=== PATIENT | male | born 1960 | race African-American/Black ===

== ENCOUNTER 2023-03-10 15:22 | Emergency (ER) | payer MEDICAID, SELFPAY ==
--- NOTE | 2023-03-10 15:55 | ED.DIZZY ---
HPI - Dizziness General Chief Complaint: General Medical <ANTOINE Bender - Last Filed: 03/10/23 15:59> Stated Complaint: high bp <ANTOINE Bender - Last Filed: 03/10/23 15:59> Time Seen by Provider: 03/10/23 22:10 <ANTOINE Bender - Last Filed: 03/10/23 15:59> Source: patient <Zee Drew MD - Last Filed: 03/11/23 00:14> Mode of arrival: ambulatory <Zee Drew MD - Last Filed: 03/11/23 00:14> Limitations: no limitations <Zee Drew MD - Last Filed: 03/11/23 00:14> History of Present Illness HPI Narrative: Patient comes to the emergency room complaining of high blood pressure. Patient states that sometimes he feels a lot of pressure in the back of the head, intermittent blurred vision. Patient states that he usually gets the symptoms when he knows that his blood pressure is high. Patient has been out of his medications for over 6 weeks. Patient moved from [place] to [place] and his health insurance has not kicked in. Patient moved before he could refill his medications in [place]. At this time, patient is asymptomatic, no chest pain or shortness of breath. Patient brought with him his empty bottle of medications, patient takes lisinopril 20 mg, hydrochlorothiazide 25 mg, amlodipine 5 mg <Zee Drew MD - Last Filed: 03/11/23 00:14> Related Data Home Medications: Previous Rx's Medication Instructions Recorded amlodipine 10 mg tablet 10 mg PO DAILY #90 tabs 03/10/23 famotidine 20 mg tablet 20 mg PO DAILY #90 tabs 03/10/23 hydrochlorothiazide 25 mg tablet 25 mg PO DAILY #90 tabs 03/10/23 lisinopril 40 mg tablet 40 mg PO DAILY #90 tabs 03/10/23 erythromycin 5 mg/gram (0.5 %) eye 1 appl ophthalmic (eye) DAILY #3.5 03/11/23 ointment grams <ANTOINE Bender - Last Filed: 03/10/23 15:59> Allergies/Adverse Reactions: Allergies Allergy/AdvReac Type Severity Reaction Status Date / Time No Known Allergies Allergy Verified 03/10/23 15:55 <ANTOINE Bender - Last Filed: 03/10/23 15:59> Review of Systems Review of Systems: Constitutional : No Weight loss, No Fever, No Chills, No Night Sweats, No Fatigue, No Malaise ENT/Mouth : No Hearing loss, No Ear Pain, No Nasal Congestion, No Sinus Pain, No Hoarseness, No sore throat, No Rhinorrhea, No Swallowing Difficulty Eyes: No Eye Pain, No Swelling, No Redness, No Foreign Body, No Discharge, No Vision Changes Cardiovascular : No Chest Pain, No SOB, No Dyspnea on Exertion, No Orthopnea, No Edema, No Palpitations, complaining of lightheadedness with exertion Respiratory : No Cough, No Sputum, No Wheezing, No Smoke Exposure, No Dyspnea Gastrointestinal : No Nausea, No Vomiting, No Diarrhea, No Constipation, No abdominal Pain, No Hematochezia, No Melena Genitourinary : no irregular bleeding, No Dysuria, No Urinary Frequency, No Hematuria, No Urinary Incontinence, No Urgency, No Flank Pain, No Urinary Flow Changes, No Hesitancy Musculoskeletal : No joint pain, No Myalgias, No Joint Swelling Skin : No Skin Lesions, No rash Neuro : No Weakness, No Numbness, No Paresthesias, No Loss of Consciousness, No Dizziness, No Headache Psych : No Anxiety/Panic, No Depression, No SI/HI/AH/VH, No Social Issues, Heme/Lymph: No Bruising, No Bleeding,No Lymphadenopathy Endocrine : No Polyuria, No Polydipsia, No Temperature Intolerance <Zee Drew MD - Last Filed: 03/11/23 00:14> [facility] Past Medical History Medical History: Medical History (Updated 03/11/23 @ 00:14 by Zee Drew MD) Borderline diabetes Hypertension <ANTOINE Bender - Last Filed: 03/10/23 15:59> Social History Social History: Social History Alcohol intake: former Smoked in Last 30 Days: No Use of substances other than those prescribed or required for medical reasons: No Advance Directives: No <ANTOINE Bender - Last Filed: 03/10/23 15:59> Physical Exam Vital Signs: Vital Signs: Last Vital Signs Temp 98.1 F 03/10/23 15:56 Pulse 61 05/01/23 23:34 Resp 16 03/10/23 23:34 BP 192/105 H 03/10/23 23:34 Pulse Ox 96 03/10/23 23:34 O2 Del Method Room Air 03/10/23 23:34 BMI result Body Mass Index 24.3 <ANTOINE Bender - Last Filed: 03/10/23 15:59> Vital Signs: Last Vital Signs Temp 98.1 F 03/10/23 15:56 Pulse 61 03/10/23 23:34 Resp 16 03/10/23 23:34 BP 192/105 H 03/10/23 23:34 Pulse Ox 96 03/10/23 23:34 O2 Del Method Room Air 03/10/23 23:34 BMI result Body Mass Index 24.3 <Zee Drew MD - Last Filed: 03/11/23 00:14> Const: Other: Appearance: Alert. Oriented X3. No acute distress. Eyes: Pupils equal, round and reactive to light. ENT: Pharynx normal. Conjunctivitis present in the right eye Neck: Normal inspection. Neck supple. No lymph nodes noted. No crepitus CVS: Normal heart rate and rhythm. Pulses normal. Normal S1 and S2 Respiratory: No respiratory distress. Breath sounds normal. No Wheezing. No rales Abdomen: Soft and nontender. No rigidity. No distention. Skin: Skin warm and dry. Normal skin color. Normal skin turgor. Extremities: No lower extremity edema. No Lacerations. No Rash Neuro: Oriented X 3. No motor deficit. No sensory deficit. Moving all extremities. No slurred speech. CN 2 through 12 grossly intact Psych: calm, cooperative, normal affect <Zee Drew MD - Last Filed: 03/11/23 00:14> Course Course Course Narrative: RME - 62 yo male with history of HTN and CVA 4 months ago who recently moved here from [place] presents to the ER for elevated BP associated with lightheadness and dizziness with exertion for the last 6-7 weeks. He has been out of all of his medications for the last 6-7 weeks. No chest pains or headaches. Reports intermittent blurred vision. He has no idea what meds he's supposed to be on. BP 209/131 Plan: basic labs, EKG, will need to get records of his meds from [facility] in [id number] <ANTOINE Bender - Last Filed: 03/10/23 15:59> Medications Administered Discontinued Medications Generic Name Dose Route Start Last Admin Trade Name Freq PRN Reason Stop Dose Admin Amlodipine Besylate 10 mg 03/10/23 23:37 03/10/23 23:40 Amlodipine Besylate 10 Mg Tablet PO 03/10/23 23:38 10 mg ONCE ONE Administration Protocol Labetalol HCl 100 mg 03/10/23 22:24 03/10/23 22:29 Labetalol Hcl 100 Mg Tablet PO 03/10/23 22:25 100 mg ONCE ONE Administration Protocol Lisinopril 40 mg 03/10/23 23:37 03/10/23 23:40 Lisinopril 40 Mg Tablet PO 03/10/23 23:38 40 mg ONCE ONE Administration Protocol <ANTOINE Bender - Last Filed: 03/10/23 15:59> Medications Administered Discontinued Medications Generic Name Dose Route Start Last Admin Trade Name Freq PRN Reason Stop Dose Admin Amlodipine Besylate 10 mg 03/10/23 23:37 03/10/23 23:40 Amlodipine Besylate 10 Mg Tablet PO 03/10/23 23:38 10 mg ONCE ONE Administration Protocol Labetalol HCl 100 mg 03/10/23 22:24 03/10/23 22:29 Labetalol Hcl 100 Mg Tablet PO 03/10/23 22:25 100 mg ONCE ONE Administration Protocol Lisinopril 40 mg 03/10/23 23:37 03/10/23 23:40 Lisinopril 40 Mg Tablet PO 03/10/23 23:38 40 mg ONCE ONE Administration Protocol <Zee Drew MD - Last Filed: 03/11/23 00:14> Medical Decision Making Medical Decision Making MDM Narrative: -EKG my interpretation: Heart rate 159, sinus bradycardia, possible left atrial enlargement, nonspecific T-wave abnormalities in V1 through V4, no T-wave inversion, QTC 384 -patient blood pressure improved to 190 systolic with 100 mg of labetalol. -patient receiving his home medications, lisinopril and amlodipine p.o. Patient's blood pressure improved to 172/94. Patient was given a prescription for all his blood pressure medications. -also, patient was given a prescription for pinkeye on the right eye <Zee Drew MD - Last Filed: 03/11/23 00:14> Lab Data Result Diagrams: 03/10/23 16:32 03/10/23 16:32 <ANTOINE Bender - Last Filed: 03/10/23 15:59> Labs: Lab Results 03/10/23 03/10/23 03/10/23 Range/Units 16:32 16:32 22:29 WBC 4.4 L (4.8-10.8) X10*3/uL RBC 5.74 (4.60-5.80) X10*6/uL Hgb 16.3 (14.0-18.0) g/dl Hct 49.5 (42.0-52.0) % MCV 86.2 (80.0-98.0) fL MCH 28.4 (27.0-33.0) pg MCHC 32.9 (31.0-36.0) g/dl RDW 13.2 (11.0-16.0) % Plt Count 204 (160-400) X10*3/uL MPV 10.6 (9.4-12.4) fL Immature Gran % (Auto) 0.2 (0.0-0.4) % Neut % (Auto) 43.0 L (45-73) % Lymph % (Auto) 42.8 H (20-40) % [place] % (Auto) 11.7 H (2-11) % Eos % (Auto) 1.4 (0-4) % Baso % (Auto) 0.9 (0-2) % Lymph # (Auto) 1.9 (1.2-4.9) X10*3/uL [place] # (Auto) 0.5 (0.1-1.2) X10*3/uL Eos # (Auto) 0.1 (0.0-0.4) X10*3/uL Baso # (Auto) 0.0 (0.0-0.2) X10*3/uL Abs Immat Gran (auto) 0.01 (0.00-0.03) X10*3/uL Absolute Neuts (auto) 1.9 L (2.0-8.3) x10*3/uL Absolute Nucleated RBC 0.000 (0.0-0.012) X10*3/uL Nucleated RBC % (auto) 0.0 (0.0-0.2) /100WBC Sodium 142 (135-145) mmol/L Potassium 4.3 (3.3-5.1) mmol/L Chloride 106 (96-108) mmol/L Carbon Dioxide 31 H (22-29) mmol/L Anion Gap 9 L (12-20) BUN 18 H (9-16) mg/dL Creatinine 1.23 (0.5-1.4) mg/dL Estim Creat Clear Calc 78.4 Estimated GFR 59 Random Glucose 91 (60-115) mg/dL Calcium 9.4 (8.4-10.2) mg/dL Magnesium 2.1 (1.6-2.6) mg/dL Total Bilirubin 0.8 (0.0-1.0) mg/dL Direct Bilirubin 0.2 (0.0-0.5) mg/dL AST 17 (5-37) U/L ALT 14 (0-40) U/L Alkaline Phosphatase 136 H (39-117) U/L Troponin I High Sens 8.2 (<3.5-35.0) ng/L Total Protein 6.8 (6.5-8.0) g/dL Albumin 3.9 (3.5-5.0) g/dL <ANTOINE Bender - Last Filed: 03/10/23 15:59> Lab Results 03/10/23 03/10/23 03/10/23 Range/Units 16:32 16:32 22:29 WBC 4.4 L (4.8-10.8) X10*3/uL RBC 5.74 (4.60-5.80) X10*6/uL Hgb 16.3 (14.0-18.0) g/dl Hct 49.5 (42.0-52.0) % MCV 86.2 (80.0-98.0) fL MCH 28.4 (27.0-33.0) pg MCHC 32.9 (31.0-36.0) g/dl RDW 13.2 (11.0-16.0) % Plt Count 204 (160-400) X10*3/uL MPV 10.6 (9.4-12.4) fL Immature Gran % (Auto) 0.2 (0.0-0.4) % Neut % (Auto) 43.0 L (45-73) % Lymph % (Auto) 42.8 H (20-40) % [place] % (Auto) 11.7 H (2-11) % Eos % (Auto) 1.4 (0-4) % Baso % (Auto) 0.9 (0-2) % Lymph # (Auto) 1.9 (1.2-4.9) X10*3/uL [place] # (Auto) 0.5 (0.1-1.2) X10*3/uL Eos # (Auto) 0.1 (0.0-0.4) X10*3/uL Baso # (Auto) 0.0 (0.0-0.2) X10*3/uL Abs Immat Gran (auto) 0.01 (0.00-0.03) X10*3/uL Absolute Neuts (auto) 1.9 L (2.0-8.3) x10*3/uL Absolute Nucleated RBC 0.000 (0.0-0.012) X10*3/uL Nucleated RBC % (auto) 0.0 (0.0-0.2) /100WBC Sodium 142 (135-145) mmol/L Potassium 4.3 (3.3-5.1) mmol/L Chloride 106 (96-108) mmol/L Carbon Dioxide 31 H (22-29) mmol/L Anion Gap 9 L (12-20) BUN 18 H (9-16) mg/dL Creatinine 1.23 (0.5-1.4) mg/dL Estim Creat Clear Calc 78.4 Estimated GFR 59 Random Glucose 91 (60-115) mg/dL Calcium 9.4 (8.4-10.2) mg/dL Magnesium 2.1 (1.6-2.6) mg/dL Total Bilirubin 0.8 (0.0-1.0) mg/dL Direct Bilirubin 0.2 (0.0-0.5) mg/dL AST 17 (5-37) U/L ALT 14 (0-40) U/L Alkaline Phosphatase 136 H (39-117) U/L Troponin I High Sens 8.2 (<3.5-35.0) ng/L Total Protein 6.8 (6.5-8.0) g/dL Albumin 3.9 (3.5-5.0) g/dL <Zee Drew MD - Last Filed: 03/11/23 00:14> Discharge Plan Discharge Clinical Impression: Hypertension, [place] eye <ANTOINE Bender - Last Filed: 03/10/23 15:59> Patient Disposition: Home, Self-Care <ANTOINE Bender - Last Filed: 03/10/23 15:59> Instructions: Chronic Hypertension (DC) <ANTOINE Bender - Last Filed: 03/10/23 15:59> Additional Instructions: Please follow-up with your primary care physician tomorrow. If you have any worsening or new symptoms, please return to the emergency room or call 911 <ANTOINE Bender - Last Filed: 03/10/23 15:59> Prescriptions: New lisinopril 40 mg tablet 40 mg PO DAILY Qty: 90 1RF hydrochlorothiazide 25 mg tablet 25 mg PO DAILY Qty: 90 1RF amlodipine 10 mg tablet 10 mg PO DAILY Qty: 90 1RF famotidine 20 mg tablet 20 mg PO DAILY Qty: 90 1RF erythromycin 5 mg/gram (0.5 %) ointment 1 appl ophthalmic (eye) DAILY Qty: 3.5 0RF <ANTOINE Bender - Last Filed: 03/10/23 15:59>
[2023-03-10 15:56] VITALS: BP 209/131; PULSE 68; RESP 14; TEMP 36.7; O2SAT 98; BMI 24.3
--- NOTE | 2023-03-10 15:56 | ECG_ITS ---
Test Reason : DIZZINESS Blood Pressure : / mmHG Vent. Rate : 059 BPM Atrial Rate : 059 BPM P-R Int : 146 ms QRS Dur : 090 ms QT Int : 388 ms P-R-T Axes : 055 035 030 degrees QTc Int : 384 ms Sinus bradycardia Possible Left atrial enlargement Left ventricular hypertrophy ( Sokolow-Ricci , Romhilt-Arcos ) Nonspecific T wave abnormality Abnormal ECG No previous ECGs available Referred By: Virginia Neves Electronically Signed By:BRISEIDA LANIER MD
[2023-03-10 16:48] LABS: MANUAL DIFF FLAG NO
[2023-03-10 16:50] LABS: Basophils Percent Auto 0.9 % (0-2); Eosinophils Absolute Auto 0.1 X10*3/uL (0.0-0.4); Eosinophils Percent Auto 1.4 % (0-4); Hematocrit 49.5 % (42.0-52.0); Hemoglobin 16.3 g/dl (14.0-18.0); Imm Gran Abs Auto 0.01 X10*3/uL (0.00-0.03); Imm Gran Pct Auto 0.2 % (0.0-0.4); Lymphocytes Absolute Auto 1.9 X10*3/uL (1.2-4.9); Lymphocytes Percent Auto 42.8 % (20-40); Mean Corpuscular HGB Conc 32.9 g/dl (31.0-36.0); Mean Corpuscular Hemoglobin 28.4 pg (27.0-33.0); Mean Corpuscular Volume 86.2 fL (80.0-98.0); Mean Platelet Volume 10.6 fL (9.4-12.4); Monocytes Absolute Auto 0.5 X10*3/uL (0.1-1.2); Monocytes Percent Auto 11.7 % (2-11); Neutrophils Absolute Auto 1.9 x10*3/uL (2.0-8.3); Platelet Count 204 X10*3/uL (160-400); Red Blood Count 5.74 X10*6/uL (4.60-5.80); Red Cell Distribution Width 13.2 % (11.0-16.0); White Blood Count 4.4 X10*3/uL (4.8-10.8)
[2023-03-10 17:09] LABS: Alanine Aminotransferase 14 U/L (0-40); Albumin Level 3.9 g/dL (3.5-5.0); Alkaline Phosphatase 136 U/L (39-117); Anion Gap 9 (12-20); Aspartate Amino Transferase 17 U/L (5-37); Bilirubin Direct 0.2 mg/dL (0.0-0.5); Bilirubin Total 0.8 mg/dL (0.0-1.0); Blood Urea Nitrogen 18 mg/dL (9-16); Calcium 9.4 mg/dL (8.4-10.2); Carbon Dioxide 31 mmol/L (22-29); Chloride 106 mmol/L (96-108); Creatinine Clr Calc Pharmacy 78.4; Estimated Glomerular Filt Rate 59; Glucose Random 91 mg/dL (60-115); Magnesium 2.1 mg/dL (1.6-2.6); Potassium 4.3 mmol/L (3.3-5.1); Sodium 142 mmol/L (135-145); Total Protein 6.8 g/dL (6.5-8.0)
[2023-03-10 21:47] VITALS: BP 230/123; PULSE 62; RESP 18; O2SAT 97
--- NOTE | 2023-03-10 22:25 | PC.NURSE ---
attempted to call pt pharmacy in [place] per providers request but pharmacy closed at this time. unable to obtain med rec
--- NOTE | 2023-03-10 22:26 | PC.NURSE ---
pt placed in room at 22:10 from waiting room
[2023-03-10] MEDS: Labetalol HCL 100 MG TABLET PO (22:29)
[2023-03-10 22:54] LABS: Troponin-I High Sensitivity 8.2 ng/L (<3.5-35.0)
[2023-03-10 23:34] VITALS: BP 192/105; PULSE 61; RESP 16; O2SAT 96
[2023-03-10] MEDS: lisinopriL 40 MG TABLET PO (23:40)
[2023-03-10] MEDS: amLODIPine Besylate 10 MG TABLET PO (23:40)
[2023-03-11 00:44] VITALS: BP 176/94
== END 2023-03-11 00:15 | disposition home or self-care (01) ==
PROVIDERS: Physician Assistant; Emergency Provider Emergency Medicine
DX: H10.023 Other mucopurulent conjunctivitis, bilateral (principal); R00.1 Bradycardia, unspecified; I10 Essential (primary) hypertension; Z79.899 Other long term (current) drug therapy
CPT/HCPCS: 36415; 80048; 80076; 83735; 84484; 85025; 93005; 99283; 99284